=== PATIENT | female | born 1980 | race Two or more races ===

== ENCOUNTER 2021-11-27 07:14 | Inpatient (IN) | payer OTHER ==
[~2021-11-27] VITALS: Ht 152.4 cm; Wt 3.2 kg
[2021-11-27] MEDS ORDERED: CHILDREN'S ASPI81 MG (08:10)
[2021-11-27] MEDS ORDERED: PRENATAL + DHA1 EAC1 (08:10)
== END 2021-11-30 18:12 | disposition home or self-care (01) | DRG 785 ==
LOC: OB/GYN 07:14 → EDBD 07:14 → LDR 07:14 → OB/GYN 08:19
PROVIDERS: ADMIT Specialist; ATTEND Specialist
PROC: 0UB70ZZ Excision of Bilateral Fallopian Tubes, Open Approach (ICD-10-PCS; 2021-11-27)
PROC: 4A1HXCZ Monitoring of Products of Conception, Cardiac Rate, External Approach (ICD-10-PCS; 2021-11-27)
PROC: 10D00Z1 Extraction of Products of Conception, Low, Open Approach (ICD-10-PCS; principal; 2021-11-27 08:00)
DX: O34.211 Maternal care for low transverse scar from previous cesarean delivery (principal); Z3A.38 38 weeks gestation of pregnancy; Z37.0 Single live birth; Z20.822 Contact with and (suspected) exposure to COVID-19; Z30.2 Encounter for sterilization